=== PATIENT | male | born 1955 | race Caucasian/White ===

== ENCOUNTER 2017-05-11 12:02 | Day surgery (SDC) | payer MEDICARE ==
[2017-05-11 14:28] LABS: BASOPHILS 0.3 % (0-2); EOSINOPHILS 3.2 % (0-7); HEMOGLOBIN 12.1 g/dL (13.5-17.5); IMMATURE GRANULOCYTES 0.2 % (0-5); LYMPHOCYTES 19.2 % (15-50); MCH 26.7 pg (26.0-34.0); MCHC 31.8 g/dL (31.0-37.0); MCV 83.9 fL (80.0-100.0); MEAN PLATELET VOLUME 9.7 fL (7.4-10.4); MONOCYTES 6.3 % (2-11); NEUTROPHILS 70.8 % (40-80); RBC 4.53 10x6/uL (4.20-6.10); RDW 16.3 % (11.5-14.5); WBC 11.6 10x3/uL (4.8-10.8)
[2017-05-11 14:35] LABS: PLATELET COUNT 274 10x3/uL (130-400)
[2017-05-11] MEDS ORDERED: JENTADUETO 2.51 EACH PO (14:35)
[2017-05-11] MEDS ORDERED: NEURONTIN600 MG PO (14:35)
[2017-05-11] MEDS ORDERED: ZOCOR40 MG PO (14:36)
[2017-05-11] MEDS ORDERED: NEURONTIN 300300 MG PO (14:36)
[2017-05-11] MEDS ORDERED: CYMBALTA20 MG PO (14:36)
[2017-05-11] MEDS ORDERED: LANTUS INSULIN10 ML SC (14:37)
[2017-05-11] MEDS ORDERED: COREG12.5 MG PO (14:37)
[2017-05-11] MEDS ORDERED: PROTONIX40 MG PO (14:38)
[2017-05-11] MEDS ORDERED: ZESTRIL40 MG PO (14:38)
[2017-05-11] MEDS ORDERED: INVOKANA300 MG PO (14:38)
[2017-05-11] MEDS ORDERED: CARAFATE1 G PO (14:38)
[2017-05-11] MEDS ORDERED: FUROSEMIDE40 MG PO (14:39)
[2017-05-11] MEDS ORDERED: GLIPIZIDE10 MG PO (14:39)
[2017-05-11] MEDS ORDERED: TIMOPTIC 0.5 % O5 ML EACH EYE (14:39)
[2017-05-11] MEDS ORDERED: CIALIS5 MG PO (14:40)
[2017-05-11 14:45] VITALS: BP 174/73; BMI 31.2
[2017-05-11 14:49] LABS: ANION GAP 14.6 mmol/L (8-16); CALCIUM 9.5 mg/dL (8.5-10.1); CARBON DIOXIDE 29.3 mmol/L (21.0-32.0); CREATININE - SERUM 1.2 mg/dL (0.6-1.3); POTASSIUM - SERUM 3.9 mmol/L (3.5-5.1)
--- NOTE | 2017-05-11 16:26 | NUR ---
1615 DISCHARGE INSTRUCTIONS GIVEN. PT HAS NO QUESTIONS OR CONCERNS AT THIS TIME. PT ESCORTED OUT BY MARYSOL GLOVER.
--- NOTE | 2017-05-12 17:33 | OP ---
PATIENT NAME: BROOKLYN GROSS MEDICAL RECORD: [id number] :51 LOCATION:[facility] ADMISSION DATE: SURGEON: BLANK WHITNEY MD DATE OF OPERATION: 05/11/2017 PROCEDURE: EGD with biopsy. INDICATIONS: Mr. Gross is a pleasant 62-year-old gentleman with a history of type 2 diabetes mellitus, peripheral neuropathy, COPD and sleep apnea who had an upper GI bleed in December 2016. He had an EGD on 12/22/2016 as an inpatient with finding showing a small sliding type hiatal hernia, moderate size gastric ulcer, gastritis, duodenitis. Antral biopsies were negative for dysplasia and Helicobacter pylori. He has been taking sucralfate as well as Protonix. Today, his hemoglobin is 12.1, MCV is 83.9 and platelets are 274,000. He presents for followup EGD. PREMEDICATIONS: Total IV anesthesia (propofol 200 mg). INSTRUMENT: Olympus video gastroscope. PROCEDURE AND FINDINGS: After receiving informed consent, Mr. Gross's posterior pharynx was anesthetized with Cetacaine spray, placed in left lateral decubitus position, sedated as per anesthesia. After achieving an adequate level of sedation, gastroscope was introduced per orally and advanced to the duodenum without difficulty. The esophageal mucosa was without erythema or ulcers. The Z line was slightly irregular, small sliding type hiatal hernia was noted. Gastric mucosa was notable for mild prepyloric and antral erythema and antral biopsies were obtained to rule out Helicobacter pylori. The previously seen antral ulcer had healed and there was no evidence of residual ulcer or scar. No lesions were seen in the body of the stomach or in the cardia or fundus. Pylorus was patent and competent. The apex of the duodenum was remarkable for patchy erythema, but no ulcer. Second portion of duodenum appeared normal. Gastroscope was then withdrawn. Mr. Gross tolerated the procedure well, no immediate complications. ASSESSMENT: 1. Healed gastric ulcer. 2. Mild gastritis. 3. Duodenitis. 4. Small sliding type hiatal hernia. RECOMMENDATIONS: 1. Follow up histopathology. 2. Continue Protonix 40 mg daily. TRANSINT:[id number] Voice Confirmation ID: [id number] DOCUMENT ID: [id number] OPERATIVE REPORT [id number] BROOKLYN GROSS BLANK WHITNEY MD at 1733 CC: LYNDSEY IBRAHIM MD [id number] DICTATION DATE: 05/11/17 1535 DATA ANALYTICS SPECIALIST: 05/11/17 1617 [facility] [place] 05/11/17 [id number] [place] [address]
== END 2017-05-11 16:15 | disposition home or self-care (01) ==
LOC: D.OPS 12:02
PROVIDERS: Internal Medicine Gastroenterology
DX: K29.70 Gastritis, unspecified, without bleeding (principal); K44.9 Diaphragmatic hernia without obstruction or gangrene; K29.80 Duodenitis without bleeding; F17.200 Nicotine dependence, unspecified, uncomplicated; E11.9 Type 2 diabetes mellitus without complications; G47.30 Sleep apnea, unspecified; J44.9 Chronic obstructive pulmonary disease, unspecified; Z01.812 Encounter for preprocedural laboratory examination